=== PATIENT | male | born 1990 | race Caucasian/White ===

== ENCOUNTER 2019-07-12 08:40 | Emergency (ER) | payer SELFPAY ==
[2019-07-12] MEDS ORDERED: DIPHENHYDRAMINE 50 MG/ML VIAL ONE (09:09)
[2019-07-12] MEDS ORDERED: NA CHLORIDE 0.9% 1,000 ML ONE (09:09)
[2019-07-12] MEDS ORDERED: MEPERIDINE HCL 25 MG/0.5 ML ONE (09:09)
[2019-07-12] MEDS ORDERED: METOCLOPRAMIDE 10 MG/2mL INJ ONE (09:09)
--- NOTE | 2019-07-12 09:57 | RAD REPORT ---
EXAM DESCRIPTION: CT - Head Brain Wo Cont - 07/12/2019 9:20 am CLINICAL HISTORY: Headache COMPARISON: None TECHNIQUE: Computed axial tomography of the head was obtained. IV contrast was not requested. All CT scans are performed using dose optimization technique as appropriate and may include automated exposure control or mA/KV adjustment according to patient size. FINDINGS: An intracranial bleed is not seen . The ventricles are normal in caliber. No extra-axial fluid collection is noted. Fluid within the sinuses/ mastoids is not seen. IMPRESSION: No acute intracranial abnormality is seen. If patient's symptoms persist MRI of the bra in would be recommended.
--- NOTE | 2019-07-12 10:11 | EDPHYS ---
Physician Documentation [facility] Name: Jamie Mims Age: 28 yrs Sex: Male : 1990 Arrival Date: 07/12/2019 Time: 08:44 Bed 6 Private MD: ED Physician Matthew Olson HPI: 07/11 09:14 This 28 yrs old Male presents to ER via Ambulatory with complaints of rn Headache, Dizziness, Nausea. 09:14 The patient complains of pain to the right side of the back of head and right occipital rn area. The patient describes the headache as aching. Onset: The symptoms/episode began/occurred 1 month(s) ago. Severity of symptoms: At its worst the pain was moderate, in the emergency department the pain is unchanged. The symptoms are alleviated by nothing. the symptoms are aggravated by nothing. The patient has experienced similar episodes in the past. Reports has chronic migraines but about 1 month ago had head injury, accidental head butt, + LOC, was not evaluated. Since then, headaches have gotten worse, assoc with nausea/vomiting, and "feels like a zombie". No fever. . Historical: - Allergies: 09:02 PENICILLINS; sv - PMHx: 09:02 Migraines; sv - PSHx: 09:02 None; sv - Immunization history:: Adult Immunizations up to date. - Social history:: Smoking status: Patient denies any tobacco usage or history of. - Family history:: not pertinent. - Hospitalizations: : No recent hospitalization is reported. ROS: 09:16 Constitutional: Negative for fever, chills, and weight loss, Eyes: Negative for injury, rn pain, redness, and discharge, Neck: Negative for injury, pain, and swelling, Cardiovascular: Negative for chest pain, palpitations, and edema, Respiratory: Negative for shortness of breath, cough, wheezing, and pleuritic chest pain, Abdomen/GI: Negative for abdominal pain, diarrhea, and constipation, MS/Extremity: Negative for injury and deformity, Skin: Negative for injury, rash, and discoloration, Neuro: Negative for numbness, tingling, and seizure. Exam: 09:16 Constitutional: This is a well developed, well nourished patient who is awake, alert, rn holding emesis bag, tearful Head/Face: Normocephalic, atraumatic. Eyes: Pupils equal round and reactive to light, extra-ocular motions intact. Lids and lashes normal. Conjunctiva and sclera are non-icteric and not injected. Cornea within normal limits. Periorbital areas with no swelling, redness, or edema. ENT: MMM Neck: Trachea midline, no thyromegaly or masses palpated, and no cervical lymphadenopathy. Supple, full range of motion without nuchal rigidity, or vertebral point tenderness. No Meningismus. Cardiovascular: Regular rate and rhythm. No pulse deficits. Respiratory: No increased work of breathing, no retractions or nasal flaring. Abdomen/GI: Soft, non-tender MS/ Extremity: Pulses equal, no cyanosis. Neurovascular intact. Full, normal range of motion. Equal circumference. Neuro: Awake and alert, GCS 15, oriented to person, place, time, and situation. Cranial nerves II-XII grossly intact. Motor strength 5/5 in all extremities. Sensory grossly intact. Cerebellar exam normal. Vital Signs: 08:50 BP 131 / 72; Pulse 97; Resp 16; Temp 98.1; Pulse Ox 100% ; Weight 78.02 kg; Height 5 sv ft. 7 in. (170.18 cm); Pain 10/10; 09:45 BP 112 / 62; Pulse 57; Resp 16; Pulse Ox 99% ; Pain 0/10; sv 08:50 Body Mass Index 26.94 (78.02 kg, 170.18 cm) sv Joe Coma Score: 10:08 Eye Response: spontaneous(4). Verbal Response: oriented(5). Motor Response: obeys rn commands(6). Total: 15. MDM: 08:50 Patient medically screened. rn 10:08 Differential diagnosis: migraine, tension headache, vasomotor headache, rn post-concussional syndrome. Data reviewed: vital signs, nurses notes, radiologic studies, CT scan, and as a result, I will discharge patient. Counseling: I had a detailed discussion with the patient and/or guardian regarding: the historical points, exam findings, and any diagnostic results supporting the discharge/admit diagnosis, radiology results, the need for outpatient follow up, to return to the emergency department if symptoms worsen or persist or if there are any questions or concerns that arise at home. Response to treatment: the patient's symptoms have markedly improved after treatment, and as a result, I will discharge patient. Special discussion: I discussed with the patient/guardian in detail that at this point there is no indication for admission to the hospital. It is understood, however, that if the symptoms persist or worsen the patient needs to return immediately for re-evaluation. Further emergent ED testing is not indicated at this point in time. I discussed with the patient/guardian in detail the need to arrange with the PCP or specialist further outpatient testing, MRI, Based on the history and exam findings, there is no indication for further emergent testing or inpatient evaluation. I discussed with the patient/guardian the need to see the neurologist for further evaluation of the symptoms. ED course: Improved after medication, ct head negative. Will dc home with neuro f/u and outpt MRI. Likely combination of baseline migraines and post-concussional syndrome on top of that.. 07/11 09:02 Order name: CT Head Brain wo Cont rn 07/11 09:02 Order name: IV Start; Complete Time: 09:19 rn Administered Medications: 09:10 Drug: NS 0.9% 1000 ml Route: IV; Rate: 1000 ml; Site: right antecubital; sv 10:22 Follow up: Response: No adverse reaction; IV Status: Completed infusion; IV Intake: sv 1000ml 09:10 Drug: Benadryl 12.5 mg Route: IVP; Site: right antecubital; sv 10:01 Follow up: Response: No adverse reaction sv 09:12 Drug: Demerol 25 mg {Note: RASS2.} Route: IVP; Site: right antecubital; sv 10:01 Follow up: Response: No adverse reaction; Marked relief of symptoms; Pain is decreased; sv RASS: Drowsy (-1) 09:14 Drug: Reglan 10 mg Route: IVP; Site: right antecubital; sv 10:01 Follow up: Response: No adverse reaction sv Disposition: 07/12/19 10:09 Discharged to Home. Impression: Postconcussional syndrome, Migraine. - Condition is Stable. - Discharge Instructions: Migraine Headache, Post-Concussion Syndrome. - Prescriptions for Zofran ODT 4 mg Oral tablet,disintegrating - place 1 tablet by TRANSLINGUAL route every 8 hours As needed; 20 tablet. orphenadrine citrate 100 mg Oral Tablet Sustained Release - take 1 tablet by ORAL route 2 times per day As needed; 20 tablet. - Medication Reconciliation Form, Thank You Letter, Antibiotic Education, Prescription Opioid Use form. - Follow up: Sacha Dominguez; When: As needed; Reason: Recheck today's complaints, Re-evaluation by your physician. - Problem is an ongoing problem. - Symptoms have improved. Signatures: Dispatcher [employer] Zayda Ortiz RN RN sv Matthew Olson MD MD metal furniture polisher: (The following items were deleted from the chart) 10:23 10:09 07/12/2019 10:09 Discharged to Home. Impression: Postconcussional syndrome; sv Migraine. Condition is Stable. Discharge Instructions: Migraine Headache, Post-Concussion Syndrome. Prescriptions for Zofran ODT 4 mg Oral tablet,disintegrating - place 1 tablet by TRANSLINGUAL route every 8 hours As needed; 20 tablet. and Forms are Medication Reconciliation Form, Thank You Letter, Antibiotic Education, Prescription Opioid Use. Follow up: Sacha Dominguez; When: As needed; Reason: Recheck today's complaints, Re-evaluation by your physician. Problem is an ongoing problem. Symptoms have improved. rn
--- NOTE | 2019-07-12 10:11 | ER ---
Nurse's Notes [facility] Name: Jamie Mims Age: 28 yrs Sex: Male : 1990 Arrival Date: 07/12/2019 Time: 08:44 Bed 6 Private MD: Diagnosis: Postconcussional syndrome;Migraine Presentation: 07/11 08:50 Chief complaint: Patient states: was hit on the right side of his head after a sv basketball incident with another players head, reports +LOC, disorientation, ringing in both ears, daily headaches (reports hx of daily headaches), n/v since this incident. Today reports he couldn't deal with the pain any longer and feeling like this. Pt was not seen at the time of the incident in an ER. Coronavirus screen: The patient has NOT traveled to a country currently being monitored by the [facility] within the last 14 days. Proceed with normal triage procedures. The patient has NOT had contact with any known and/or suspected case of coronavirus. Proceed with normal triage procedures. Ebola Screen: No symptoms or risks identified at this time. Initial Sepsis Screen: Does the patient meet any 2 criteria? No. Patient's initial sepsis screen is negative. Does the patient have a suspected source of infection? No. Patient's initial sepsis screen is negative. Risk Assessment: Do you want to hurt yourself or someone else? Patient reports no desire to harm self or others. 08:50 Method Of Arrival: Ambulatory sv 08:50 Acuity: KYARA 3 sv 08:50 Onset of symptoms was June 2019. sv Triage Assessment: 08:50 Headache History: The patient has had previous headaches and this one is more severe sv than previous episodes. General: Appears in no apparent distress. uncomfortable, well groomed, well developed, Behavior is calm, cooperative, appropriate for age. Pain: Complains of pain in occipital area, base of the skull, right occipital area and right base of the skull Pain currently is 10 out of 10 on a pain scale. Pain began has daily headaches but this headache is worse since his head injury a month ago Is continuous, Alleviated by nothing. Also complains of nausea, inability to work, inability to concentrate. Neuro: Level of Consciousness is awake, alert, obeys commands, Oriented to person, place, time, situation, Photo Optics Technician are equal bilaterally Moves all extremities. Full function Gait is steady, Speech is normal, Facial symmetry appears normal, Facial symmetry: tongue is midline, Reports headache in right occipital area, that is the "worst ever". Respiratory: Airway is patent Respiratory effort is even, unlabored, Respiratory pattern is regular, symmetrical. Derm: Skin is intact, Skin is pink, warm \\T\\ dry. Musculoskeletal: Range of motion: intact in all extremities. Historical: - Allergies: 09:02 PENICILLINS; sv - PMHx: 09:02 Migraines; sv - PSHx: 09:02 None; sv - Immunization history:: Adult Immunizations up to date. - Social history:: Smoking status: Patient denies any tobacco usage or history of. - Family history:: not pertinent. - Hospitalizations: : No recent hospitalization is reported. Screenin:10 Abuse screen: Denies threats or abuse. Denies injuries from another. Nutritional sv screening: No deficits noted. Tuberculosis screening: No symptoms or risk factors identified. Fall Risk None identified. Assessment: 10:01 Reassessment: Patient appears in no apparent distress at this time. Patient and/or sv family updated on plan of care and expected duration. Pain level reassessed. Patient is alert, oriented x 3, equal unlabored respirations, skin warm/dry/pink. Patient denies pain at this time. Patient states feeling better. Patient states symptoms have improved. 10:23 Reassessment: Patient appears in no apparent distress at this time. Patient and/or sv family updated on plan of care and expected duration. Pain level reassessed. Patient is alert, oriented x 3, equal unlabored respirations, skin warm/dry/pink. Patient denies pain at this time. Patient states feeling better. Patient states symptoms have improved. Vital Signs: 08:50 BP 131 / 72; Pulse 97; Resp 16; Temp 98.1; Pulse Ox 100% ; Weight 78.02 kg; Height 5 sv ft. 7 in. (170.18 cm); Pain 10/10; 09:45 BP 112 / 62; Pulse 57; Resp 16; Pulse Ox 99% ; Pain 0/10; sv 08:50 Body Mass Index 26.94 (78.02 kg, 170.18 cm) sv Joe Coma Score: 10:08 Eye Response: spontaneous(4). Verbal Response: oriented(5). Motor Response: obeys rn commands(6). Total: 15. ED Course: 08:44 Patient arrived in ED. rg4 08:50 Matthew Olson MD is Attending Physician. rn 08:50 ED physician to see patient. sv 08:59 Zayda Reyes RN is Primary Nurse. sv 09:00 Patient has correct armband on for positive identification. Bed in low position. Call sv light in reach. Adult w/ patient. Pulse ox on. NIBP on. Door closed. Head of bed elevated. 09:02 Triage completed. sv 09:02 Arm band placed on Patient placed in an exam room, on a stretcher, on pulse oximetry. sv 09:10 Inserted saline lock: 20 gauge in right antecubital area, using aseptic technique. sv Flushed right antecubital with 5 ml normal saline. 09:[address] via wheelchair. sv 09:22 CT Head Brain wo Cont In Process Unspecified. EDMS 09:25 CT completed. Patient tolerated procedure well. Patient moved back from CT. md1 10:09 Sacha Dominguez MD is Referral Physician. rn 10:23 No provider procedures requiring assistance completed. IV discontinued, intact, sv bleeding controlled, No redness/swelling at site. Pressure dressing applied. Administered Medications: 09:10 Drug: NS 0.9% 1000 ml Route: IV; Rate: 1000 ml; Site: right antecubital; sv 10:22 Follow up: Response: No adverse reaction; IV Status: Completed infusion; IV Intake: sv 1000ml 09:10 Drug: Benadryl 12.5 mg Route: IVP; Site: right antecubital; sv 10:01 Follow up: Response: No adverse reaction sv 09:12 Drug: Demerol 25 mg {Note: RASS2.} Route: IVP; Site: right antecubital; sv 10:01 Follow up: Response: No adverse reaction; Marked relief of symptoms; Pain is decreased; sv RASS: Drowsy (-1) 09:14 Drug: Reglan 10 mg Route: IVP; Site: right antecubital; sv 10:01 Follow up: Response: No adverse reaction sv Intake: 10:22 IV: 1000ml; Total: 1000ml. sv Outcome: 10:09 Discharge ordered by . rn 10:23 Discharged to home ambulatory, with family. sv 10:23 Condition: stable 10:23 Condition: improved 10:23 Discharge instructions given to patient, family, Instructed on discharge instructions, follow up and referral plans. medication usage, Demonstrated understanding of instructions, follow-up care, medications, Prescriptions given X 2. 10:23 Patient left the ED. sv Signatures: Dispatcher [employer] Zayda Ortiz RN RN sv Nieto, Roman, MD MD rn Garcia, Rubi rg4 Windy Sierra md1 Corrections: (The following items were deleted from the chart) 10: 09:12 Demerol 25 mg IVP in right antecubital sv sv
[2019-07-12 10:31] VITALS: TEMP 98.1
[2019-07-12 10:33] VITALS: BP 112/62; O2SAT 99
== END 2019-07-12 10:23 | disposition home or self-care (01) ==
LOC: ER 08:40
DX: F07.81 Postconcussional syndrome (principal); G43.909 Migraine, unspecified, not intractable, without status migrainosus; W50.0XXA Accidental hit or strike by another person, initial encounter; Y93.67 Activity, basketball; Y92.310 Basketball court as the place of occurrence of the external cause; Z88.0 Allergy status to penicillin
CPT/HCPCS: 70450; 96361; 96374; 96375; 99284; J1200; J2175; J2765; J7030